=== PATIENT | female | born 1955 | race American Indian/Alaskan Native ===

== ENCOUNTER 2017-08-24 11:03 | Emergency (ER) | payer MEDICAID ==
[~2017-08-24] VITALS: Ht 165.1 cm; Wt 127.0 kg
[2017-08-24 11:13] VITALS: BP 145/69
[2017-08-24] MEDS ORDERED: NAPR-56 PO (11:19)
== END 2017-08-24 11:57 | disposition home or self-care (01) ==
LOC: ER 11:04
DX: M77.9 Enthesopathy, unspecified (principal); Z79.899 Other long term (current) drug therapy
CPT/HCPCS: 73130; 99284; A6449